=== PATIENT | female | born 1985 | race Caucasian/White ===

== ENCOUNTER → 2017-08-26 | Outpatient (CLI) | payer OTHER ==
[~2017-08-26] MED LIST: AZIT500T26 PO; CHN5 PO; CLX20 PO; DLC5; GADAVIST IV PRN; LAMO100T16 PO; LRT5 PO; METH-307 PO; OXYSRUNK PO; PRED10TA PO; TOPI200T14 PO
--- NOTE | 2017-08-26 13:38 | DIAGNOSTIC IMAGING REPORT ---
Brain MRI WITH AND WITHOUT CONTRAST HISTORY: Follow-up pineal cyst. Seizures. TECHNIQUE: Multiplanar multisequence MRI of the brain was performed both before and after the intravenous administration of contrast. COMPARISON STUDY: None. FINDINGS: There are no areas of restricted diffusion to suggest acute infarction. 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 The paranasal sinuses are clear. The mastoid air cells are clear. The ventricles and sulci are within normal limits for age. There is no mass, hematoma, midline shift. The major vascular flow-voids at the skull base are well maintained. Postcontrast sequences show no areas of abnormal enhancement. IMPRESSION: No acute intracranial abnormality. 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 Electronically signed by: Cam Byrne M.D. 08/26/2017 1:36 PM Dictated Date/Time: 08/26/2017 1:29 PM
== END | disposition home or self-care (01) ==
LOC: C.MRIBC 12:25
PROVIDERS: ATTEND Psychiatry & Neurology Neurology
DX: G43.009 Migraine without aura, not intractable, without status migrainosus (principal); E34.8 Other specified endocrine disorders